=== PATIENT | female | born 1950 | race African-American/Black ===

== ENCOUNTER 2022-02-02 13:08 | Outpatient (CLI) | payer MEDICARE ==
--- NOTE | 2022-02-04 09:53 | Mammography Report ---
DIGITAL SCREENING MAMMOGRAM WITH CAD, 02/02/2022 CLINICAL INFORMATION / INDICATION: Routine screening mammography. TECHNIQUE: Digital bilateral 2D mammography was obtained in the craniocaudal and mediolateral obliqu e projections. This examination was interpreted with the benefit of Computer-Aided Detection analysis . COMPARISON: None available. FINDINGS: Breast Density: The breasts are heterogeneously dense, which may obscure small masses. No dominant mass, suspicious calcifications, or architectural distortion in either breast. Small partially calcified nodule is noted in the upper outer left breast consistent with benign fibro adenoma. IMPRESSION: No mammographic evidence of malignancy. Follow up recommendation: Routine yearly screening mammogram. BI-RADS Category 2: BENIGN. A "normal" or negative report should not discourage follow up or biopsy of a clinically significant f inding. A written summary of these findings will be mailed to the patient. The patient will be entered into a mammography reporting system which will generate a reminder letter for the patient's next appointmen t at the appropriate interval. The [employer] recommends yearly mammograms starting at age 40 and continuing as l darin as a woman is in good health. Breast MRI is recommended for women with an approximate 20-25% or greater lifetime risk of breast cancer, including women with a strong family history of breast or ova eliseo cancer or who have been treated for Hodgkin's disease. Signer Name: Mirna Griffith MD Signed: 02/04/2022 9:49 AM Workstation Name: [id number]
== END 2022-02-02 13:09 | disposition home or self-care (01) ==
LOC: SPVWC 13:08
PROVIDERS: ATTEND Physician Assistant
DX: Z12.31 Encounter for screening mammogram for malignant neoplasm of breast (principal)
CPT/HCPCS: 77067